=== PATIENT | female | born 1970 | race Caucasian/White ===

== ENCOUNTER → 2019-10-15 | Outpatient (CLI) | payer BC | LOC: RAD 07:37 | DX: M75.101 Unspecified rotator cuff tear or rupture of right shoulder, not specified as traumatic (principal); M75.51 Bursitis of right shoulder ==

== ENCOUNTER → 2019-12-11 | Outpatient (CLI) | payer BC | LOC: MAMMO 08:03 | DX: Z12.31 Encounter for screening mammogram for malignant neoplasm of breast (principal) ==

== ENCOUNTER 2020-01-01 09:00 | Outpatient (RCR) | payer BC | END 2020-02-10 | disposition home or self-care (01) | LOC: PT | DX: M25.511 Pain in right shoulder (principal); G89.29 Other chronic pain ==

== ENCOUNTER → 2020-06-10 | Outpatient (CLI) | payer BC | LOC: RAD 09:15 | DX: M71.332 Other bursal cyst, left wrist (principal) ==

== ENCOUNTER → 2024-05-09 | Outpatient (CLI) | payer BC | LOC: MAMMO 13:55 | DX: Z12.31 Encounter for screening mammogram for malignant neoplasm of breast (principal) ==